=== PATIENT | male | born 1945 | race Caucasian/White ===

== ENCOUNTER → 2020-11-30 03:44 | Outpatient (CLI) | payer MEDICARE, SELFPAY ==
[2020-11-30 19:45] LABS: SARS-CoV-2 RNA PCR Negative
== END ==
PROVIDERS: PCP Internal Medicine; Visit Provider Internal Medicine Gastroenterology
DX: Z01.812 Encounter for preprocedural laboratory examination (principal); Z20.822 Contact with and (suspected) exposure to COVID-19
CPT/HCPCS: C9803; U0003; U0005

== ENCOUNTER 2020-12-03 01:35 | Day surgery (SDC) | payer MEDICARE, SELFPAY ==
[2020-11-20 14:19] VITALS: BMI 29.2
[2020-12-03 10:32] VITALS: BP 147/85; PULSE 88; RESP 16; TEMP 36.1; O2SAT 100; BMI 29.0
[2020-12-03] MEDS: LACTATED RINGERS 1,000 ML 150 ML IV CONT (10:42)
--- NOTE | 2020-12-03 10:53 | WPDANESEPPF ---
Anes - Initial Pre Proc Eval Procedure: Operation Date: 12/03/20 11:45 Proposed Procedures p Screening Colonoscopy - Hector Cortes MD Date/Time: 12/03/20 10:53 Surgeon: Hector Cortes MD Pre Op Diagnosis: neoplasm screening Patient Data Age: 75 Gender: M Height: 5 ft 3 in Weight: 74.5 kg Last Vital Signs Temp 97 F L 12/03/20 10:32 Pulse 88 12/03/20 10:32 Resp 16 12/03/20 10:32 BP 147/85 H 12/03/20 10:32 Pulse Ox 100 12/03/20 10:32 Allergies Allergy/AdvReac Type Severity Reaction Status Date / Time hydrocodone Allergy Nausea Verified 12/03/20 10:31 Home Medications Medication Instructions Recorded Confirmed Type aspirin 81 mg tablet,delayed 81 mg PO DAILY 07/30/20 12/03/20 History release furosemide 20 mg tablet 20 mg PO QAM 07/30/20 12/03/20 History multivitamin 1 tablet PO DAILY 07/30/20 12/03/20 History atorvastatin 10 mg tablet 10 mg PO DAILY #90 tablet 11/27/20 12/03/20 Rx finasteride 5 mg tablet 5 mg PO DAILY #90 tablet 11/27/20 12/03/20 Rx metoprolol tartrate 50 mg tablet 50 mg PO BID #180 tablet 11/27/20 12/03/20 Rx nifedipine 30 mg tablet,extended 30 mg PO BID #180 tablet 11/27/20 12/03/20 Rx release omeprazole magnesium 20 mg 20 mg PO DAILY #90 tablet 11/27/20 12/03/20 Rx tablet,delayed release tamsulosin 0.4 mg capsule 0.4 mg PO BID #180 cap 11/27/20 12/03/20 Rx Patient hx anesthesia problems: none Family hx anesthesia problems: none PMFSH Past Medical History Medical History (Updated 12/03/20 @ 10:52 by Toño Farfan MD) Dyslipidemia Essential hypertension GERD (gastroesophageal reflux disease) Family History Family History (Updated 03/01/14 @ 07:13 by DOCTOR UNKNOWN) Mother Family history of osteoporosis Family history of rheumatoid arthritis Father Malignant neoplasm of prostate Social History Social History Smoking status: Never smoker Alcohol intake: current Drinks per week: 2 Substance use: never Substance use type: does not use Living arrangements: with family Spiritual care concerns: No Anes - Eval Final PreProcedure Day of Procedure 12/03/20 10:53 Patient weight: overweight Heart: regular rate and rhythm Lungs: clear to auscultation Airway: Mallampati scale class II Neurological: alert and oriented Last oral intake: >/= 8 hours ASA classification: II Emergent: no Anesthetic plan: proceed Anesthesia type and monitoring: general GIVS and standard monitoring Informed Consent: The patient's anesthetic plan and its attendant risks and benefits were discussed with the patient/family/POA. Questions were solicited and answers provided to the satisfaction of the patient/family/POA.
--- NOTE | 2020-12-03 11:37 | PM.HPGS ---
History of Present Illness History of Present Illness Consent: Risks, benefits, and alternatives have been discussed and questions answered. Patient agrees to proceed with procedure. Chief complaint: neoplasm screening Narrative: Sammy Zelaya is a 75 year old male with screening colonoscopy, last one about 15 years ago Review of Systems Constitutional: Constitutional: Denies headache(s) and Denies weakness Eyes: Eyes: Denies blurry vision ENT: Reports Normal hearing present, Denies headache(s) and Denies neck pain Cardiovascular: Cardiovascular: Denies chest pain and Denies dyspnea Respiratory: Respiratory: Denies dyspnea Gastrointestinal: Gastrointestinal: Reports no additional gastrointestinal complaints Genitourinary: Genitourinary: Denies dysuria Musculoskeletal: Musculoskeletal: Denies neck pain Integumentary/Breasts: Skin/Breast: Denies dry skin Neurologic: Reports Normal hearing present, Denies headache(s) and Denies weakness Psychiatric: Psychiatric: Denies anxiety Endocrine: Endocrine: Denies change in body appearance Hematologic/Lymphatic: Hematologic/Lymphatic: Denies easy bleeding Allergic/Immunologic: Allergic/Immunologic: Denies urticaria PMFSH Past Medical History Medical History (Updated 12/03/20 @ 10:52 by Toño Farfan MD) Dyslipidemia Essential hypertension GERD (gastroesophageal reflux disease) Family History Family History (Updated 03/01/14 @ 07:13 by DOCTOR UNKNOWN) Mother Family history of osteoporosis Family history of rheumatoid arthritis Father Malignant neoplasm of prostate Social History Social History Smoking status: Never smoker Alcohol intake: current Drinks per week: 2 Substance use: never Substance use type: does not use Living arrangements: with family Spiritual care concerns: No Meds Home Medications and Allergies Home Medications Medication Instructions Recorded Confirmed Type aspirin 81 mg tablet,delayed 81 mg PO DAILY 07/30/20 12/03/20 History release furosemide 20 mg tablet 20 mg PO QAM 07/30/20 12/03/20 History multivitamin 1 tablet PO DAILY 07/30/20 12/03/20 History atorvastatin 10 mg tablet 10 mg PO DAILY #90 tablet 11/27/20 12/03/20 Rx finasteride 5 mg tablet 5 mg PO DAILY #90 tablet 11/27/20 12/03/20 Rx metoprolol tartrate 50 mg tablet 50 mg PO BID #180 tablet 11/27/20 12/03/20 Rx nifedipine 30 mg tablet,extended 30 mg PO BID #180 tablet 11/27/20 12/03/20 Rx release omeprazole magnesium 20 mg 20 mg PO DAILY #90 tablet 11/27/20 12/03/20 Rx tablet,delayed release tamsulosin 0.4 mg capsule 0.4 mg PO BID #180 cap 11/27/20 12/03/20 Rx Allergies Allergy/AdvReac Type Severity Reaction Status Date / Time hydrocodone Allergy Nausea Verified 12/03/20 10:31 Vital Signs Vital Signs - 24 hr 12/03/20 10:32 Temperature 97 F L Pulse Rate 88 Respiratory Rate 16 Blood Pressure 147/85 H Pulse Oximetry 100 Exam Const: General: comfortable and no acute distress HENMT: General nose exam: Normal nares present Eyes: General: appearance normal, both eyes and all related structures Neck: Neck: no JVD Resp: Auscultation: clear to auscultation bilaterally Cardio: Rate: regular rate Rhythm: regular rhythm GI: Inspection: non-distended GI Palp: Yes Soft to palpation Skin: General skin exam: normal color Neuro: General: gait normal Speech: normal speech Extrem: General: normal to inspection Psych: Mental Status: mental status grossly normal Assessment and Plan Assessment and plan (1) Encounter for screening colonoscopy: Code(s): Z12.11 - Encounter for screening for malignant neoplasm of colon Status: Acute Assessment and Plan: colonoscopy
[2020-12-03 11:53] VITALS: BP 120/60; PULSE 73; RESP 19; O2SAT 97
[2020-12-03 12:03] VITALS: BP 133/70; PULSE 73; RESP 19; O2SAT 98
[2020-12-03 12:13] VITALS: BP 137/68; PULSE 73; RESP 19; O2SAT 100
== END 2020-12-03 12:25 | disposition home or self-care (01) ==
PROVIDERS: PCP Internal Medicine; Visit Provider Internal Medicine Gastroenterology
PROC: 0DJD8ZZ Inspection of Lower Intestinal Tract, Via Natural or Artificial Opening Endoscopic (ICD-10-PCS; CPT 45378; principal; 2020-12-03 11:45)
DX: Z12.11 Encounter for screening for malignant neoplasm of colon (principal); K64.8 Other hemorrhoids; Z79.82 Long term (current) use of aspirin; I10 Essential (primary) hypertension; K21.9 Gastro-esophageal reflux disease without esophagitis; E78.5 Hyperlipidemia, unspecified
CPT/HCPCS: G0121; C9803; J2704; J7120; U0003; U0005

== ENCOUNTER 2021-01-28 12:00 | Outpatient (CLI) | payer MEDICARE, SELFPAY ==
--- NOTE | ~2021-01-28 | XR_ITS ---
EXAMINATION: XR lumbar spine 2-3V DATE: 01/28/2021 12:19 INDICATION: Low back pain TECHNIQUE: Anteroposterior and lateral views of the lumbar spine, and cone-down lateral view of the l umbosacral junction were obtained. COMPARISON: None. FINDINGS: There are 3 mm of retrolisthesis of L1 on L2 and L2 on L3 and 2 mm of anterolisthesis of L4 on L5. There is severe loss of intervertebral disc space height at L1-2 and L2-3. The vertebral body heights are maintained. There is no fracture. There is moderate to severe facet osteoarthritis of th e lower lumbar spine. Calcified atherosclerosis is noted. The bowel gas pattern is normal. There are phleboliths of the pelvis. Small degenerative osteophytes project from the anterior endplates of mult iple vertebral bodies. IMPRESSION: 1. Moderate to severe lumbar spondylosis, worse at L1-2 and L2-3. Reviewed, dictated and finalized at location A.
== END 2021-01-28 12:01 | disposition home or self-care (01) ==
LOC: ANHIMG 12:05
PROVIDERS: PCP Internal Medicine; Visit Provider Internal Medicine
DX: M47.896 Other spondylosis, lumbar region (principal)
CPT/HCPCS: 72100

== ENCOUNTER → 2021-06-11 09:14 | Outpatient (CLI) | payer MEDICARE, SELFPAY ==
--- NOTE | ~2021-06-11 | MR_ITS ---
EXAMINATION: MR lumbar spine wo con DATE: 06/11/2021 10:08 INDICATION: Lumbar spinal stenosis without neurogenic claudication. TECHNIQUE: Magnetic resonance imaging (MRI) of the lumbar spine was performed without intravenous con trast. Sequences included sagittal T2-weighted FSE, sagittal T2-weighted FS FSE, sagittal T1-weighted FSE, and axial T2-weighted FSE. COMPARISON: None FINDINGS: 6 mm retrolisthesis L1 on L2, 4 mm retrolisthesis L2 on L3 and 2 mm anterolisthesis L4 on L5. Vertebr al body heights are normal. Mild lumbar levocurvature centered at L2 with severe right-sided disc hei ght loss with degenerative endplate changes at L1-L2 and L2-L3. Prominent fibrovascular degenerative endplate changes at L1-L2. Marrow signal is otherwise normal. Mild disc height loss at L4-L5. Moderat e disc height loss with annular fissure and disc extrusion resulting in mild central canal stenosis a t T10-T11. The conus medullaris terminates at L2. There is normal signal in the caudal spinal cord. P aravertebral soft tissues are unremarkable. The following disc levels are specifically discussed: T12-L1: The disc does not extend beyond the endplate margin. There is mild bilateral facet joint oste oarthritis. There is no neural foraminal stenosis. There is no central canal stenosis. L1-L2: Annular fissure and broad-based disc extrusion extending from foraminal zone to foraminal zone with disc material extending 5 mm caudal to the level of the superior endplate of L2. There is mild left and minimal right facet joint osteoarthritis. There is moderate bilateral, right greater than le ft neural foraminal stenosis. There is mild central canal stenosis. L2-L3: Annular fissure and broad-based disc extrusion extending from foraminal zone to foraminal zone with disc material extending 5 mm caudal to the level of the superior endplate of L3. There is mild right and minimal left facet joint osteoarthritis. There is moderate neural foraminal stenosis. There is mild central canal stenosis. L3-L4: Disc is minimally bulging. There is mild bilateral facet joint osteoarthritis. There is mild b ilateral neural foraminal stenosis. There is no central canal stenosis. L4-L5: Disc is bulging. There is severe left and moderate right facet joint osteoarthritis. There is mild to moderate bilateral neural foraminal stenosis. There is mild central canal stenosis. L5-S1: Annular fissure and small right foraminal zone disc protrusion. There is severe bilateral face t joint osteoarthritis. There is mild right neural foraminal stenosis. There is no central canal sten osis. IMPRESSION: 1. Severe lumbar spondylosis. Reviewed, dictated and finalized at location B. E [facility]TER
== END ==
PROVIDERS: PCP Internal Medicine; Visit Provider Physical Medicine & Rehabilitation Pain Medicine
DX: M47.815 Spondylosis without myelopathy or radiculopathy, thoracolumbar region (principal); M47.817 Spondylosis without myelopathy or radiculopathy, lumbosacral region; M48.07 Spinal stenosis, lumbosacral region; M48.05 Spinal stenosis, thoracolumbar region
CPT/HCPCS: 72148

== ENCOUNTER 2021-10-29 19:41 | Emergency (ER) | payer MEDICARE, SELFPAY ==
[2021-10-29 19:50] VITALS: BP 172/79; PULSE 97; RESP 18; TEMP 37.2; O2SAT 100
--- NOTE | 2021-10-29 19:58 | ED.URI ---
HPI - URI/Sore Throat General Chief Complaint: Upper Respiratory Infection Stated Complaint: uri Time Seen by Provider: 10/29/21 19:59 Source: patient and RN notes reviewed Mode of arrival: ambulatory Limitations: no limitations History of Present Illness HPI Narrative: 76 y/o male presented for c/o sinus congestion and pressure, cough, sore throat, low fever 99.3 and hoarse voice for about 1 week. Endorses postnasal drainage and feels it is draining into his chest. Has taken covid tests x3 negative. Denies nausea, vomiting, diarrhea, shortness of breath, wheezing. Vaccinated for covid and flu. MD elicited complaint: cough Related Data Home Medications Medication Instructions Recorded Confirmed aspirin 81 mg tablet,delayed 81 mg PO DAILY 07/30/20 10/01/21 release multivitamin 1 tablet PO DAILY 07/30/20 10/01/21 Allergies Allergy/AdvReac Type Severity Reaction Status Date / Time hydrocodone Allergy Nausea Verified 10/01/21 08:54 Review of Systems Review of Systems: CONSTITUTIONAL: Denies malaise, chills, sweats, fever EYES: Denies visual changes, redness, or discharge ENT: Reports rhinorrhea, congestion, sinus pain, sore throat CARDIOVASCULAR: Denies chest pain, palpitations, edema RESPIRATORY: Reports cough, post nasal drainage. Denies dyspnea GASTROINTESTINAL: Denies abdominal pain, nausea, vomiting, diarrhea SKIN: Denies rash or itching MUSCULOSKELETAL: Denies myalgia NEUROLOGIC: Denies headache PMFSH Past Medical History Medical History Dyslipidemia Encounter for screening colonoscopy Essential hypertension Establishing care with new doctor, encounter for GERD (gastroesophageal reflux disease) IFG (impaired fasting glucose) Family History Family History Mother Family history of osteoporosis Family history of rheumatoid arthritis Father Malignant neoplasm of prostate Social History Social History Smoking status: Never smoker Alcohol intake: current Drinks per week: 2 Substance use: never Substance use type: does not use Spiritual care concerns: No Exam Narrative: GENERAL: Well-appearing. HEAD: Normocephalic EYES: conjunctivae clear ENT: Mucous membranes moist. TM pearly lara with dull light reflex bilaterally; no tragal tenderness. Oropharynx erythematous without lesions or exudate, no drooling, no hoarseness, no trismus, uvula midline. No tripod positioning, muffled voice, soft palate or pharyngeal wall bulging NECK: Supple. No lymphadenopathy CHEST: Clear to auscultation, breath sounds equal. No wheezing, rhonchi, rales, or stridor. No respiratory distress, speaks in full sentences. HEART: Regular rate and rhythm. No murmur heard. SKIN: Warm, dry, no rash. NEURO: Alert and oriented x3. PSYCH: Normal mood and affect Course Course Emergency Course: Patient is aware of diagnosis, understands and agrees to treatment plan. Anticipatory guidance given. Patient agrees to follow-up as directed and is aware of reasons to seek care at the emergency department. Portions of this record may have been created with voice recognition software Level of Care: Express Care Visit Vital Signs Vital signs: Vital Signs Temperature 99 F 10/29/21 19:50 Pulse Rate 97 10/29/21 19:50 Respiratory Rate 18 10/29/21 19:50 Blood Pressure 172/79 H 10/29/21 19:50 Pulse Oximetry 100 10/29/21 19:50 Temperature 99 F 10/29/21 19:50 Pulse Rate 97 10/29/21 19:50 Respiratory Rate 18 10/29/21 19:50 Blood Pressure 172/79 H 10/29/21 19:50 Pulse Oximetry 100 10/29/21 19:50 reviewed MDM - URI/Sore Throat Differential Diagnosis Differential diagnosis: Likely upper respiratory infection, sinusitis, viral infection and bronchitis Discharge Plan Discharge Clinical Impression: Upper respiratory infection Qualifier
== END 2021-10-29 20:12 | disposition home or self-care (01) ==
PROVIDERS: Emergency Provider Nurse Practitioner Family; PCP Internal Medicine
DX: J06.9 Acute upper respiratory infection, unspecified (principal); E78.5 Hyperlipidemia, unspecified; I10 Essential (primary) hypertension; K21.9 Gastro-esophageal reflux disease without esophagitis; R73.01 Impaired fasting glucose
CPT/HCPCS: 99213; G0463